=== PATIENT | female | born 1935 | race Caucasian/White ===

== ENCOUNTER 2017-01-08 13:20 | Emergency (ER) | payer MEDICARE, BC ==
[~2017-01-08] VITALS: Ht 152.4 cm; Wt 56.2 kg
[2017-01-08] MEDS ORDERED: LORA0.5T48 PO (13:36)
[2017-01-08] MEDS ORDERED: AMIT50TA3 PO (13:36)
[2017-01-08] MEDS ORDERED: LEVO25TA2 PO (13:36)
[2017-01-08] MEDS ORDERED: ALPR0.25 PO (13:36)
[2017-01-08] MEDS ORDERED: [UNRECOGNIZED DRUG - REMARK] (13:36)
--- NOTE | 2017-01-08 13:43 | NUR ---
AT BEDSIDE PERFORMING MSE
[2017-01-08] MEDS ORDERED: FLEET ENEMA 133 ML BOTTLE RC ONE ×2 (13:45→14:06)
[2017-01-08] MEDS ORDERED: MAGNESIUM CITRATE 296 ML BOTTLE PO ONE (14:30)
[2017-01-08] MEDS ORDERED: MAGNESIUM CITRATE 296 ML BOTTLE ONE (14:36)
[2017-01-08 14:41] VITALS: BP 139/79
== END 2017-01-08 15:01 | disposition home or self-care (01) ==
LOC: ER 13:20
DX: K56.41 Fecal impaction (principal); F41.9 Anxiety disorder, unspecified
CPT/HCPCS: 99284; A4663